=== PATIENT | male | born 1970 | race Caucasian/White ===

== ENCOUNTER 2016-10-16 15:22 | Observation (INO) | payer BC ==
--- NOTE | ~2016-10-16 | HP ---
History And Physical [place] [id number] [facility] [place]. [address] NAME: GRETEL LIRA : 68 STATUS : ADM Frederick PAT#: [id number] AGE: 45 ADM/REG DATE : 10/16/16 MR#: [id number] REPORT SERV DATE: 10/17/16 DICTATED BY: CRISTINA MILIAN DATE: 10/17/16 REPORT STATUS : Draft TRANSCRIBED BY: RAFAEL DATE: 10/17/16 DATE OF ADMISSION: 10/16/2016 PRIMARY PROTECTIVE SIGNAL SUPERINTENDENT: Jairo Varela M.D. CHIEF COMPLAINT: Chest pain. HISTORY OF PRESENT ILLNESS: This is a 45-year-old male with history of coronary artery disease, status post [id number] AR in 01/2015 and 06/2015, receiving stents on both occasions. He complains of a two- to three-day history of chest pain, described as midsternal and "heavy," also with some "muscle spasms." He states the pain is not "as bad" as his heart attacks in the past. There was no radiation to the pain, unlike his prior AR pain, and this pain has been constant over the last two to three days. Yesterday at work, while he was cooking around 9 o'clock, the pain worsened and he told his . He went home, and she took him to the emergency department. He was given some nitroglycerin paste as well as full-dose aspirin without any specific relief. He was then given a dose of IV Dilaudid and Zofran, which seemed to relieve the pain, but it then returned a couple of hours later and has been managed in the chest pain observation unit with IV Dilaudid and Percocet. He states it is a 6/10 in severity now, and he is receiving some IV Dilaudid. There was no exertional component to the chest pain nor is it pleuritic. His troponins have been negative. The patient's EKGs and telemetry also indicate PVCs. The patient states he has chronic palpitations, which seem to be worse at night when he lies on his left side. There has been no associated dizziness, presyncope, or syncope. He denies any significant recent shortness of breath, PND, orthopnea, or lower extremity edema. No recent fever, cough, or chills. PAST MEDICAL HISTORY: 1. Coronary artery disease with [id number]-fovsfzyyy AR in 01/2015 with a stent to the RCA and proximal ramus. Eyr-QX-vgqosqtji AR in 06/2015, status post stent to the mid LAD and fractional flow reserve to the left circumflex, which was 0.99. 2. Continued tobacco use. 3. History of migraine headaches. 4. Paroxysmal atrial tachycardia versus paroxysmal atrial fibrillation after stent to the LAD in 06/2015. 5. Holter in 02/2015 showing over 6000 PVCs. PAST SURGICAL HISTORY: None. HOME MEDICATIONS: Aspirin 81 daily, Lipitor 40 at bedtime, and Plavix 75 every morning. ALLERGIES: ALLERGY TO MORPHINE, CAUSES ITCHING RASH AND SHORTNESS OF BREATH. 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 He smokes one-half pack per day, which he is attempting to decrease on his own. He has been smoking since age 14. Denies alcohol or illicit drug use. History And Physical [address] [address] NAME: GRETEL LIRA : 68 STATUS : ADM Frederick PAT#: [id number] AGE: 45 ADM/REG DATE : 10/16/16 MR#: [id number] REPORT SERV DATE: 10/17/16 DICTATED BY: CRISTINA MILIAN DATE: 10/17/16 REPORT STATUS : Draft TRANSCRIBED BY: RAFAEL DATE: 10/17/16 FAMILY HISTORY: Negative for premature cardiovascular disease among his first-degree relatives. REVIEW OF SYSTEMS: Negative, except as indicated above. PHYSICAL EXAMINATION: VITAL SIGNS: Blood pressure as high as 173/76, for which the patient received a dose of clonidine and currently 111/55; heart rate 40s to 50s; temperature 97.6; pulse oximetry 98% on room air. BMI 27.6. GENERAL: Well developed, well nourished, in no acute distress. HEENT: Anicteric. Normal EOM. Head, normocephalic. PERRLA, no xanthelasma. NECK: Supple. No JVD. Carotids normal without bruits. LUNGS: Clear to auscultation bilaterally anterior and posterior. Respirations even and unlabored. CARDIOVASCULAR: S1, S2. Regular rate and rhythm. No murmurs, rubs, or gallops appreciated. There is some mild tenderness to palpation over the left sternal border. ABDOMEN: Normal bowel sounds. Soft and nontender to palpation. No masses or organomegaly. EXTREMITIES: No peripheral edema. DP/PT and radial pulses palpable bilaterally. No clubbing or cyanosis. SKIN: Warm and dry. Normal turgor. No pallor or cyanosis. MUSCULOSKELETAL: Moving all extremities x4. Normal muscle strength. NEURO/PSYCH: Alert and oriented with appropriate affect. LABORATORY DATA: White blood count 6.0, hemoglobin 13.9, hematocrit 40.3. Sodium 142, potassium 4.1, BUN 10, creatinine 0.9. Troponin less than 0.02 x3. Chest x-ray shows a chronic 4 mm nodular opacity in the left upper lobe. No acute cardiopulmonary processes. EKGs interpreted by myself indicate normal sinus rhythm on the first EKG with PVCs, which are multifocal. Subsequent EKGs indicate sinus bradycardia. No ischemic changes even when the patient is having chest pain. ASSESSMENT/PLAN: 1. Chest pain in this 45-year-old male with history of coronary artery disease. He has been observed overnight in the chest pain observation unit and is negative for acute coronary syndrome. His pain is midsternal, but it is atypical and that it has been constant over the last couple of days with no exertional component. The pain is better with IV Dilaudid. Recommend proceeding with a nuclear stress test today to identify any ischemia in this patient with documented coronary artery disease as well as a left circumflex lesion that was by FFR in 06/2015 at 0.99. If stress testing is low risk with no ischemia noted, we plan to discharge him home with a prescription for amlodipine 2.5 mg daily given his blood pressure has been a little on the high side. Also, recommend to follow up with his primary care physician and close followup with his outpatient psychiatrist. 2. History of coronary artery disease with prior stents to the RCA, ramus, and mid LAD. The patient is compliant with his aspirin, statin, and Plavix. We will continue. Add antianginal agent amlodipine as above. History And Physical [address] [place]. [address] NAME: GRETEL LIRA : 68 STATUS : ADM Frederick [facility]#: [id number] AGE: 45 ADM/REG DATE : 10/16/16 MR#: [id number] REPORT SERV DATE: 10/17/16 DICTATED BY: CRISTINA MILIAN DATE: 10/17/16 REPORT STATUS : Draft TRANSCRIBED BY: RAFAEL DATE: 10/17/16 3. PVCs and bradycardia, documented on telemetry as well as prior Holter reports. These seem to be symptomatic more in the evening. I will plan to send him home with a 48- hour Holter monitor to see if there is any other arrhythmia and have a copy of this report sent to his outpatient psychiatrist. The patient has been intolerant of beta-bria in the past. 4. Mixed hyperlipidemia, on Lipitor 40 mg q.h.s., we will continue. 5. Tobacco use. I have counseled the patient regarding complete cessation. He is open to the use of Chantix to assist him in quitting. I will provide a prescription for this as well as education upon discharge. Follow up with PCP. JOVITA/RAFAEL Cristina Milian NP / [id number] CC: Keli Hill, MSN, [employer] DYLAN Ray M.D.
[~2016-10-16 15:22] MED LIST: ALTA5 PO; ASAB PO; COREG3 PO; COREG6 PO; EFFIENT10 PO; IMDUR30 PO; LIPITOR40 PO; MULTIPLE VIT PO; NAP500 PO; NICODERM C21 MG/241 TOP; NTG150 SL; PLAVIX PO; PRILO PO; PRIN10 PO
[2016-10-16 15:47] LABS: BASOPHILS 0.3 %; BASOPHILS ABSOLUTE 0.02 10/3/uL (0.0-0.16); EOSINOPHILS ABSOLUTE 0.12 10/3/uL (0.0-0.53); HEMATOCRIT 40.3 % (40.0-51.0); HEMOGLOBIN 13.9 g/dL (13.6-17.8); IMMATURE GRANULOCYTES 0.2 %; IMMATURE GRANULOCYTES ABSOLUTE 0.01 10/3/uL (0.0-0.11); LYMPHOCYTES 32.1 %; LYMPHOCYTES ABSOLUTE 1.92 10/3/uL (0.67-4.30); MEAN CORPUS HGB CONC 34.5 g/dL (32.0-36.0); MEAN CORPUSCULAR VOLUME 92.6 fL (80-100); MEAN PLATELET VOLUME 10.5 fL (9.2-13.0); MONOCYTES 7.2 %; MONOCYTES ABSOLUTE 0.43 10/3/uL (0.21-1.20); NEUTROPHILS 58.2 %; NEUTROPHILS ABSOLUTE 3.48 10/3/uL (2.02-8.40); PLATELET COUNT 175 10/3/uL (150-400); RBC DISTRIBUTION WIDTH 12.8 % (12.0-16.0); RED CELL COUNT 4.35 10/6/uL (4.7-6.1)
[2016-10-16 15:48] LABS: MANUAL DIFF NO %
[2016-10-16 15:57] LABS: INTERNATIONAL NORMAL RATI 1.1 UNITS (-); PROTIME (NOT ORD) 13.6 SEC (12.0-14.5)
[2016-10-16 16:05] LABS: BUN (BLOOD UREA NITROGEN) 10 MG/DL (6-23); CALCIUM, SERUM 8.8 MG/DL (8.5-10.4); CHEST PAIN PROFILE TAT 0 Hrs 24 Mins; CHLORIDE, SERUM 108 MMOL/L (96-112); CO2 (CARBON DIOXIDE) 29 MMOL/L (24-34); CREATININE 0.95 MG/DL (0.70-1.30); GFR AFRICAN AMERICAN 111 ML/MIN (>=60); GFR NON AFRICAN AMERICAN 96 ML/MIN (>=60); GLUCOSE, SERUM 101 MG/DL (60-99); POTASSIUM, SERUM 4.1 MMOL/L (3.5-5.3); SODIUM, SERUM 142 MMOL/L (135-148); TROPONIN I <0.02 NG/ML (<0.05)
[2016-10-16] MEDS ORDERED: PLAVIX PO (20:25)
[2016-10-16] MEDS ORDERED: ASAB PO (20:26)
[2016-10-16] MEDS ORDERED: LIPITOR40 PO (20:26)
[2016-10-17] MEDS ORDERED: AMILORID5B PO (14:00)
[2016-10-17] MEDS ORDERED: [UNRECOGNIZED DRUG - OTHER] (14:03)
[2016-10-17] MEDS ORDERED: NORV25 PO (14:21)
[2016-11-07] MEDS ORDERED: COREG6 PO (12:25)
[2016-11-07] MEDS ORDERED: NORCO1 TA2 PO (12:26)
[2016-11-07] MEDS ORDERED: NITROSTAT0.4 MG SL (12:26)
[2016-11-07] MEDS ORDERED: CAT1 PO (12:27)
[2016-11-10] MEDS ORDERED: BETAPACE80 PO (14:49)
== END 2016-10-17 14:54 | disposition home or self-care (01) ==
LOC: ER 15:22 → CDU1 20:20 → CDU2 21:10
PROVIDERS: Emergency Medicine
DX: R07.2 Precordial pain (principal); I25.10 Atherosclerotic heart disease of native coronary artery without angina pectoris; I49.3 Ventricular premature depolarization; E78.2 Mixed hyperlipidemia; Z87.891 Personal history of nicotine dependence; Z79.82 Long term (current) use of aspirin; Z79.02 Long term (current) use of antithrombotics/antiplatelets; Z79.899 Other long term (current) drug therapy; Z88.5 Allergy status to narcotic agent
CPT/HCPCS: 71020; 78452; 80048; 83735; 84484; 85025; 85610; 85730; 93005; 93017; 93225; 93226; 96374; 96375; 96376; 99285; A9270-GY; A9502; G0378; J1170; J2405